=== PATIENT | male | born 2000 | race Two or more races ===

== ENCOUNTER 2025-01-25 18:53 | Emergency (ER) | payer MEDICAID, SELFPAY ==
[2025-01-25 18:54] VITALS: BMI 18.8
[2025-01-25 19:30] VITALS: BP 101/62; PULSE 76; RESP 18; TEMP 37.2; O2SAT 99
--- NOTE | 2025-01-25 20:08 | EDNOTE_ITS ---
ED General RME/HPI General Chief complaint: Eye Problems Stated complaint: LEFT EYE PAIN S/P GETTING LAC WITH SHEET METAL Time Seen by Provider: 01/25/25 20:03 Arrival date/time: 01/25/25 18:53 CC: Foreign body sensation in the right eye HPI patient was drilling sheet-metal with safety glasses and states that got struck in the eye. The patient flushed his eye thinks he got it out , but still has a foreign body sensation. Patient denies any blurred vision or seeing spots. No other complaints Related Data Previous Rx's ?Medication ?Instructions ?Recorded tobramycin 0.3 % eye drops 1 drp ophthalmic (eye) Q4H #5 mL 01/25/25 Allergies Allergy/AdvReac Type Severity Reaction Status Date / Time No Known Allergies Allergy Unverified 01/25/25 20:04 Review of Systems Review of Systems Narrative Review of Systems: GEN: No fever, no chills, no weight loss EYES: No discharge, no visual changes, no pain, + left eye foreign body sensation HEENT: No ear pain, no congestion, no sore throat PULM: No shortness of breath, no cough, no congestion CV: No chest pain, no dyspnea on exertion, no palpitations GI: No nausea, no vomiting, no diarrhea, no pain, no constipation : No frequency, no urgency, no dysuria MUSC/SKEL: No joint pain, no back pain SKIN: No rash PSYCH: No hallucinations, no depression HEME/LYMPH: No easy bleeding or bruising tendencies NEURO: No weakness, no headache Past Medical History Social History SMOKING STATUS: Never smoker ED Exam Narrative Physical exam: [General: Not in any acute distress Head normocephalic HEENT: Eyes: Right eye is unremarkable. Left eye under fluorescein dye there is a minor abrasion to the sclera at the 12 o'clock position above the cornea all the subsystems of HEENT are within acceptable limits Neck is supple nontender Chest equal chest rise nontender to palpation Respiratory: Clear to auscultation no wheezes crackles or rubs CV: Rate rhythm is regular no murmurs rubs or clicks Skin: Intact no petechiae rash induration ulceration or crepitus Extremities: Moving all extremity against resistance cap refill less than 2 seconds neurosensory intact Neuro: Awake alert oriented x3 Glascow coma 15 no focal deficits] Course Quality Measures none Orders Category Date Time Status Fluorescein Sodium [Bio-Lolita] Med 01/25/25 20:03 Discontinued 1 mg LEFT EYE X1 ONE TETRACAINE Op Siomara 0.5% [Pontocaine Op Siomara 0.5%] Med 01/25/25 20:03 Discontinued 1 drop LEFT EYE X1 ONE Vital Signs Vital signs: Vital Signs Temperature 98.9 F 01/25/25 19:30 Pulse Rate 76 01/25/25 19:30 Respiratory Rate 18 01/25/25 19:30 Blood Pressure 101/62 01/25/25 19:30 Pulse Oximetry (%) 99 01/25/25 19:30 Oxygen Delivery Method Room Air 01/25/25 19:30 Discharge Plan Plan Patient Disposition: HOME (Self Care) Patient condition on transfer: Stable Prescriptions/Referrals Prescriptions/Med Rec: New tobramycin 0.3 % drops 1 drp ophthalmic (eye) Q4H Qty: 5 0RF Referrals: Adan Ramos MD [Referring Provider, Opthalmology] - In 1 week Problem List Clinical Impression: Corneal abrasion Patient/Caregiver Discharge Instructions Education Materials: Corneal Injury Additional Instructions: Use the drops for the next 2 to 3 days if is worsening symptoms follow-up with the corporate operations compliance manager listed above or return the emergency room for reevaluation. Print Language: Lithuanian Stand Alone Forms: Natasha Award Info., Patient Portal Info Letter, Work/School Release PA/[employer] Supervising Physician PA/[employer] Supervising Physician: Gelacio Hill ENP MDM Medication Administration(s) Medication Administration History Discontinued Medications Fluorescein Sodium (Fluorescein Sod 1 Mg Strp) 1 mg LEFT EYE X1 ONE Stop: 01/25/25 20:04 Last Admin: 01/25/25 20:31 Dose: 1 mg Documented By: NIKOLAS Tetracaine HCl (Tetracaine Pf Op Siomara 0.5% 4 Ml Drpette) 1 drop LEFT EYE X1 ONE Stop: 01/25/25 20:04 Last Admin: 01/25/25 20:32 Dose: 1 drop Documented By: NIKOLAS
[2025-01-25] MEDS: FLUORESCEIN SOD 1 MG STRP LEFT EYE (20:31)
[2025-01-25] MEDS: TETRACAINE PF OP SOL 0.5% 4 ML DRPETTE 1 DROP LEFT EYE (20:32)
--- NOTE | 2025-01-25 21:15 | PC.NURSE ---
a TEST ENGINEERING INTERN assisted with [facility] exam.
== END 2025-01-25 21:35 | disposition home or self-care (01) ==
LOC: SERX 21:26
PROVIDERS: Emergency Provider Emergency Medicine; PCP Student in an Organized Health Care Education/Training Program
DX: S05.02XA Injury of conjunctiva and corneal abrasion without foreign body, left eye, initial encounter (principal); W22.8XXA Striking against or struck by other objects, initial encounter; Y93.89 Activity, other specified
CPT/HCPCS: 99283